=== PATIENT | female | born 1970 | race Caucasian/White ===

== ENCOUNTER 2020-07-13 21:12 | Inpatient (IN) ==
[2020-07-13] MEDS ORDERED: IOPAMIDOL 100 ML BOTTLE IV ONE (21:13)
--- NOTE | 2020-07-13 22:12 | Emergency Department Note ---
Nausea/Vomiting/Diarrhea HPI General Chief complaint: Nausea/Vomiting/Diarrhea Stated complaint: nausea, vomiting, diarrhea Time Seen by Provider: 07/13/20 22:00 Source: patient Mode of arrival: ambulatory Limitations: no limitations History of Present Illness HPI Narrative: Narrative: Evaluation of nausea vomiting and diarrhea. The patient has previously had mesenteric mass lesions as well as liver lesions noted on CT scan. Today at approximately 1400 a percutaneous liver biopsy was performed. Approximately 3 and half hours later the patient developed nausea vomiting with diarrhea dark red blood in her stool. She denies any fevers or chills. She does report some mild to moderate abdominal discomfort in the right upper quadrant. The symptoms radiate into the back. No lightheadedness or dizziness. Symptoms are constant. She denies any exacerbating or alleviating factors. Related Data Previous Rx's Medication Instructions Recorded ondansetron 4 mg PO Q6H PRN #14 tab 01/17/20 Allergies Allergy/AdvReac Type Severity Reaction Status Date / Time ciprofloxacin Allergy Mild Hives Verified 07/13/20 12:57 metronidazole [From Flagyl] Allergy Mild Hives Verified 07/13/20 12:58 Review of Systems ROS ROS Narrative: Narrative: All systems ED: reviewed and negative except as stated. PFSH Narrative Patient History Narrative: Narrative: Medical/Surgical/Family History All Active Problems (Updated 07/14/20 @ 03:09 by Stanford Garcia MD) Abdominal pain (Acute) Acute pancreatitis (Acute) Rectal bleeding (Acute) Cystic disease of liver (Acute) Left sided abdominal pain (Acute) Colonic mass (Acute) Hypoechoic nodule (Acute) Social History Smoking Status: Current every day smoker Exam Narrative Narrative: Narrative: General Limitations: no limitations General appearance: Present alert and in no apparent distress Head Head: Present atraumatic, normocephalic and normal inspection Eye Eye: Present normal appearance and EOMI; Absent conjunctival injection ENT ENT: Present normal exam and mucous membranes moist Neck Neck: Present normal inspection and trachea midline Respiratory Respiratory: Present normal lung sounds bilaterally; Absent respiratory distress Cardiovascular Cardiovascular: Present regular rate, normal rhythm and normal heart sounds Adbominal Abdominal: Present soft and other (No active bleeding.); Absent distention, tenderness, guarding and rebound Extremities Extremities: Present normal inspection; Absent tenderness Back Back: Present normal inspection; Absent tenderness Neurological Neurological: Present alert, oriented X3 and CN II-XII intact; Absent motor sensory deficit Psychiatric Psychiatric: Present normal affect and normal mood Skin Skin: Present warm (WNL) and dry; Absent rash Course Vital Signs Vital signs: Vital Signs Temperature 97.4 F 07/13/20 21:13 Pulse Rate 97 H 07/13/20 21:13 Respiratory Rate 18 07/13/20 21:13 Blood Pressure 134/82 07/13/20 21:13 Pulse Oximetry (%) 96 07/13/20 21:13 Temperature 97.4 F 07/13/20 21:13 Pulse Rate 83 07/13/20 23:30 Respiratory Rate 18 07/13/20 21:13 Blood Pressure 119/58 07/13/20 23:30 Pulse Oximetry (%) 95 07/13/20 23:30 MDM MDM Narrative Medical decision making narrative: Narrative: Patient presents for evaluation of epigastric pain to the back into the right upper quadrant in the context of recent percutaneous liver biopsy. The patient also has nausea and vomiting. Labs show a leukocytosis of 14.2. Lipase is elevated at greater than 3000. The patient CT scan shows multiple lesions as described in the report. Pancreas is described as unremarkable. There is noted to be sludge and possible stones in the gallbladder lumen. I have reviewed the patient's medical record and the patient did have an ultrasound of the gallbladder in December which was normal and showed no evidence of stones or sludge at that time. Patient was treated symptomatically with IV fluid as well as morphine and Zofran. On repeat exam she is feeling better. I reviewed the report from the liver biopsy. It does not appear that the procedure itself directly impacted the pancreas. I did discuss the case with the general surgeon on-call. He is willing to consult and does not believe the patient requires transfer for GI services at this time. The patient continues to have a small amounts of dark red blood per rectum. It is not clear at this time as to the source of this bleeding. The patient has had a colonoscopy in December which shows no evidence of diverticulosis. The patient does have a mesenteric mass which appears to be contiguous with the jejunum. This may be the source of the patient's bleeding however it does not appear that this mass was engaged during the biopsy procedure earlier today. I had a long discussion with the patient regarding the findings and the source of her symptoms. She is agreeable to be admitted to the hospital. At the time of admission her symptoms are well controlled. Lab Data Lab results reviewed: Yes I reviewed the patient's lab results. Result diagrams: 07/13/20 22:30 07/13/20 22:30 Labs: Lab Results 07/13/20 07/13/20 07/13/20 Range/Units 22:30 22:30 22:30 WBC 14.2 H (4.5-11.0) K/mcL RBC 4.61 (4.00-5.20) M/mcL Hgb 13.9 (12.0-15.0) g/dL Hct 40.9 (36.0-48.0) % MCV 88.7 (80.0-100.0) fL MCH 30.2 (26.0-34.0) pg MCHC 34.0 (31.0-36.0) g/dL RDW 13.7 (11.5-14.5) % Plt Count 237 (140-440) K/mcL MPV 11.8 H (7.4-10.4) fL Neut % (Auto) 82.8 H (38.0-78.0) % Lymph % (Auto) 12.1 L (15.0-49.0) % Norton % (Auto) 4.8 (1.0-12.0) % Eos % (Auto) 0.1 (0.0-7.0) % Baso % (Auto) 0.2 (0.0-2.0) % Lymph # (Auto) 1.72 (1.50-4.80) K/mcL Norton # (Auto) 0.68 (0.10-0.90) K/mcL Eos # (Auto) 0.02 (0.00-0.70) K/mcL Baso # (Auto) 0.03 (0.00-0.20) K/mcL Absolute Neutrophils 11.76 H (1.80-8.00) K/mcL PT 13.0 (11.9-14.5) sec INR 0.9 (0.9-1.1) Sodium 136 (133-145) mmol/L Potassium 4.0 (3.3-5.1) mmol/L Chloride 100 (96-108) mmol/L Carbon Dioxide 25 (22-30) mmol/L Anion Gap 11.0 (8.0-16.0) BUN 14 (6-20) mg/dL Creatinine 0.6 (0.6-1.1) mg/dL GFR Calculation 107 Glucose 101 (70-105) mg/dL Calcium 9.6 (8.6-10.4) mg/dL Total Bilirubin 2.1 H (0.1-1.0) mg/dL AST 210 H (<32) U/L ALT 152 H (<40) U/L Alkaline Phosphatase 99 (39-117) U/L Total Protein 7.1 (5.9-8.4) gm/dL Albumin 4.3 (3.2-5.2) gm/dL Globulin 2.8 (2.2-3.7) gm/dL Albumin/Globulin Ratio 1.5 (1.0-2.3) Lipase > 3000 H (7-60) U/L Radiology Data Radiology results reviewed: Yes I reviewed the patient's radiology results. Discharge Plan Patient/Caregiver Discharge Instructions Pt seen by [employer]/PA only: No Clinical Impression: Abdominal pain, Acute pancreatitis, Rectal bleeding Patient Disposition: Xfer As Inpt ([facility]) Follow up with: Tamie Kong [Primary Care Provider] - Prescriptions: No Action ondansetron 4 mg tablet,disintegrating 4 mg PO Q6H PRN (Reason: nausea and vomiting) Qty: 14 RF: 0
[2020-07-13 23:13] LABS: Basophils # (Auto) 0.03 K/mcL (0.00-0.20); Basophils % (Auto) 0.2 % (0.0-2.0); Eosinophils # (Auto) 0.02 K/mcL (0.00-0.70); Eosinophils % (Auto) 0.1 % (0.0-7.0); Hematocrit 40.9 % (36.0-48.0); Hemoglobin 13.9 g/dL (12.0-15.0); Lymphocytes # (Auto) 1.72 K/mcL (1.50-4.80); Lymphocytes % (Auto) 12.1 % (15.0-49.0); Mean Cell Volume 88.7 fL (80.0-100.0); Mean Platelet Volume 11.8 fL (7.4-10.4); Monocytes # (Auto) 0.68 K/mcL (0.10-0.90); Monocytes % (Auto) 4.8 % (1.0-12.0); Neutrophils % (Auto) 82.8 % (38.0-78.0); Platelet Count 237 K/mcL (140-440); RBC 4.61 M/mcL (4.00-5.20); Red Cell Distribution Width 13.7 % (11.5-14.5); WBC 14.2 K/mcL (4.5-11.0)
[2020-07-13 23:32] LABS: ALT/SGPT 152 U/L (<40); AST/SGOT 210 U/L (<32); Albumin 4.3 gm/dL (3.2-5.2); Albumin/Globulin Ratio 1.5 (1.0-2.3); Alkaline Phosphatase 99 U/L (39-117); Bilirubin,Total 2.1 mg/dL (0.1-1.0); Blood Urea Nitrogen 14 mg/dL (6-20); Calcium 9.6 mg/dL (8.6-10.4); Carbon Dioxide 25 mmol/L (22-30); Chloride 100 mmol/L (96-108); Globulin 2.8 gm/dL (2.2-3.7); Glomerular Filtration Rate 107; Glucose 101 mg/dL (70-105)
[2020-07-13 23:56] LABS: INR 0.9 (0.9-1.1)
[2020-07-14] MEDS ORDERED: HYDROmorphone 0.5 MG/0.5 ML SYRINGE IV PRN ×2 (02:43→11:49)
[2020-07-14] MEDS ORDERED: ONDANSETRON 4 MG/2 ML VIAL IV PRN ×3 (02:43→11:49)
[2020-07-14] MEDS: 0.9 % SODIUM CHLORIDE 1,000 ML IV SCH ×6 (03:23→22:58)
[2020-07-14] MEDS: 0.9 % SODIUM CHLORIDE 10 ML SYRINGE IV SCH ×4 (03:23→20:29)
--- NOTE | 2020-07-14 08:24 | Cat Scan Report ---
History: Rectal bleeding, vomiting, liver biopsy performed earlier on the same date TECHNIQUE: The patient was imaged following intravenous but no oral contrast scanning during the portal venous phase from the diaphragm through the symphysis pubis. Sagittal and coronal reformats are created. The radiation exposure was limited using dose reduction technology. FINDINGS: The lung bases are clear. There are at least seven low attenuation masses scattered throughout the liver. The largest is in segment 4A and measures approximately 4.2 cm in size. The lesion which was biopsied is located anteriorly in segment eight of the right lobe and measures 2.1 x 2.2 cm. There is no evidence of intraparenchymal or subcapsular hematoma in the liver following the preceding biopsy. No hemorrhage is seen within the abdomen or pelvis. There is some relatively high attenuation material within the lumen of the gallbladder. This is probably sludge. However, blood passing through the bile ducts into the gallbladder is a consideration. The lateral jain not thickened or inflamed. Ducts are nondilated. The spleen, pancreas and adrenals are normal. The kidneys are normal in size shape and contour and there is no kidney stone or hydronephrosis. There is a large irregularly shaped mass arising from jejunum in the left upper quadrant. It measures 4.6 x 5.6 cm. It is distorting but not occluding the lumen. The duodenum and proximal jejunum are not obstructed. Large intestine is normal without evidence of obstruction, inflammation or Mass. There are few diverticula in the sigmoid colon. Urinary bladder uterus and ovaries appear normal. Comparison the prior CT done on 06/24/20 shows the tumor in the has not enlarged. The liver metastasis have increased in size. IMPRESSION: No evidence of intra-abdominal hemorrhage following the preceding liver biopsy Multiple liver metastasis Stable tumor in the jejunum in the left upper quadrant, not causing bowel obstruction Interpreted and Authenticated by: Per Graf 07/14/20
[2020-07-14] MEDS ORDERED: DOCUSATE SODIUM 100 MG CAPSULE PO SCH ×2 (09:00→21:00)
[2020-07-14] MEDS ORDERED: NICOTINE 21 MG PATCH TOPICAL SCH (10:00)
--- NOTE | 2020-07-14 11:17 | Internal Med History&Physical ---
HPI History of Present Illness Patient information: Note initiated : 07/14/20 at 11:05 am Service Date, if different from initiated Date: [] Patient: Jewell Bartlett a 49 y/o F admitted on 07/14/20 for nausea, vomiting, diarrhea. Chief Complaint: [] History of present illness: Ms. Bartlett is a 49 year old F recently diagnosed mesenteric tumor, presenting with bloody stool and abdominal pain. 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 Yesterday afternoon she received a liver biopsy. About 3 and half hours after the procedures, she developed multiple episodes of lower GI bleeding with bloody stool hospitalized increasing abdominal pain mostly in the right upper quadrant severe and sharp in nature. She also has nausea and vomiting associated. Due to the symptoms, she was brought to the ED for further evaluation. Lipase found to be elevated to more than 3 ounces. Constitutional Constitutional: Absent chills, excessive sweating, fatigue, fever(s) and weakness EENT Eyes: Absent blurry vision, change in vision, loss of vision and other visual disturbances Ears: Absent decreased hearing and tinnitus Nose, mouth and throat: Absent abnormal hearing, dry mouth, headache(s), nasal congestion and sore throat Cardiovascular Cardiovascular: Absent chest pain, chest pain at rest, edema, irregular heart rhythm and palpatations Respiratory Respiratory: Absent cough, dyspnea and wheezing Gastrointestinal Gastrointestinal: Present abdominal pain, hematochezia, nausea and vomiting; Absent constipation and diarrhea Musculoskeletal Musculoskeletal: Absent back pain, deformity, limited range of motion, muscle cramps, muscle weakness and numbness Integumentary Integumentary: Absent lesions, rash and wounds Neurological Neurological: Absent focal weakness, headache(s) and numbness Psychiatric Psychiatric: Absent anxiety, depression and hallucinations PFSH PFSH All Active Problems (Updated 07/14/20 @ 11:14 by Nathanael Turner MD) Current tobacco use (Acute) Mesenteric mass (Acute) Liver metastases (Acute) Lower GI bleed (Acute) Abdominal pain (Acute) Acute pancreatitis (Acute) Rectal bleeding (Acute) Cystic disease of liver (Acute) Left sided abdominal pain (Acute) Colonic mass (Acute) Hypoechoic nodule (Acute) MEDS/ALLERGIES Home Medications and Allergies Home Medications Medication Instructions Recorded Confirmed Type Adult Multivitamin Gummies 1 cap PO DAILY 07/14/20 07/14/20 History acetaminophen 1,000 mg PO Q8HP PRN 07/14/20 07/14/20 History Allergies Allergy/AdvReac Type Severity Reaction Status Date / Time ciprofloxacin Allergy Mild Hives Verified 07/13/20 12:57 metronidazole [From Flagyl] Allergy Mild Hives Verified 07/13/20 12:58 EXAM Constitutional Vitals: Temp Pulse Resp BP Pulse Ox 37.2 C 80 15 107/74 95 07/14/20 07:41 07/14/20 07:41 07/14/20 07:41 07/14/20 07:41 07/14/20 07:41 Exam: Deferred since patient refused to be examined DATA Data Completed and Pending Labs: Labs from last 24 hours 07/13/20 07/13/20 07/13/20 22:30 22:30 22:30 WBC 14.2 H RBC 4.61 Hgb 13.9 Hct 40.9 MCV 88.7 MCH 30.2 MCHC 34.0 RDW 13.7 Plt Count 237 MPV 11.8 H Neut % (Auto) 82.8 H Lymph % (Auto) 12.1 L Isabella % (Auto) 4.8 Eos % (Auto) 0.1 Baso % (Auto) 0.2 Lymph # (Auto) 1.72 Isabella # (Auto) 0.68 Eos # (Auto) 0.02 Baso # (Auto) 0.03 Absolute Neutrophils 11.76 H PT 13.0 INR 0.9 Sodium 136 Potassium 4.0 Chloride 100 Carbon Dioxide 25 Anion Gap 11.0 BUN 14 Creatinine 0.6 GFR Calculation 107 Glucose 101 Calcium 9.6 Total Bilirubin 2.1 H AST 210 H ALT 152 H Alkaline Phosphatase 99 Total Protein 7.1 Albumin 4.3 Globulin 2.8 Albumin/Globulin Ratio 1.5 Lipase > 3000 H A/P Assessment and plan (1) Acute pancreatitis: Status: Acute (2) Lower GI bleed: Status: Acute (3) Liver metastases: Status: Acute (4) Mesenteric mass: Status: Acute (5) Current tobacco use: Status: Acute Narrative A/P Narrative: 1. Acute pancreatitis: Most likely triggered by recent liver biopsy procedure Admit to inpatient med surg NPO, okay for ice chips [id number] Zofran IV PRN nausea vomiting Dilaudid IV PRN severe pain 2. Lower GI bleeding, mesenteric mass with multiple liver metastases: Consult Dr. Aguirre, recs. appreciated Protonix 40mg IV BID SCDs only for DVT ppx Keep patient NPO in case if additional surgical procedures are indicated 3. Current tobacco use: Nicotine replacement therapy Time Spent With Patient Time: Total time spent is greater than 50% in coordination of care (as documented) at patient's floor/unit and/or counseling patient: Total time spent with greater than 50% in coordination of care (as documented) at patient's floor/unit and/or counseling patient:: 15 - 24 minutes QUALITY VTE Deep Vein Thrombosis/Pulmonary Embolism Present on Admission: No
[2020-07-14] MEDS ORDERED: traZODone HCL 50 MG TABLET PO PRN (11:49)
[2020-07-14] MEDS ORDERED: IOPAMIDOL 100 ML BOTTLE IV ONE (11:49)
--- NOTE | 2020-07-14 12:03 | Ultrasound Report ---
History: Pancreatitis, liver mass, small bowel mass, status post liver biopsy yesterday FINDINGS: There are multiple hypoechoic lesions in the liver. The largest is located superiorly in the left lobe and measures 4.2 x 4.3 x 4.4 cm. As a thick echogenic rind and a cystic central component. Second largest is located in the right lobe and measures 2.2 x 2.9 x 3.6 cm. Laterally in the right lobe there is another partially cystic and partial solid lesion which measures 2.1 x 2.2 x 2.4 cm. These were seen on the preceding CT scan and have remained stable. The overall size liver is normal. There is no dilatation of the intrahepatic bile ducts. The pancreas is normal without evidence of a mass or inflammation. Pancreatic duct is 2 mm in diameter. Within the lumen of the gallbladder there is a linear echogenic bands of tissue along with some sludge. The gallbladder wall is 2 mm in thickness. No pericholecystic fluid collection is present. Common bile duct ranges from 4 to 5 mm in diameter. There is no ascites or hematoma are present. IMPRESSION: Normal pancreas Scattered lesions in the liver which are more likely necrotic metastasis rather than multifocal abscess Echogenic material within the gallbladder. This could be retracted clot secondary to yesterday's liver biopsy or debris from chronic cholecystitis. No ascites or evidence of upper abdominal hematoma Interpreted and Authenticated by: Per Graf 07/14/20
--- NOTE | 2020-07-14 13:37 | General Surgery Consult Note ---
HPI Data of Consult Patient: new to practice Consult date: 07/14/20 Requesting physician: Nathanael Turner Primary Care Provider: Tamie Kong Consult Narrative Chief complaint: Abdominal pain, nausea emesis and blood per rectum Reason for consult: Abdominal pain History of present illness: This is a pleasant 49-year-old female who has a complex recent medical history. She was having some abdominal pain last December, was seen in CT scan showed a questionable transverse colon colon mass along with multiple liver lesions. She was referred for an outpatient GI evaluation and underwent a screening colonoscopy by Dr. Camara which was negative. She was referred to Dr. Manning concern clinic, ordered a CEA and a CT scan. Patient was lost to follow-up after the CT scan until recently where she underwent a repeat CT scan which showed the liver lesions as increasing and the transverse colon mass was more likely a intra-abdominal mass versus a small bowel mass. She was referred to interventional radiology yesterday for a CT-guided biopsy of the liver lesion, she reports after that biopsy she became nauseous had multiple bouts of emesis with bright red which she describes as blood followed by multiple bouts of diarrhea also with blood. She came into the emergency room where work-up was significant for CT scan which demonstrates a liver lesions, what is read as a intra-abdominal mass, and labs significant with an elevated white blood cell count along with elevated lipase. She was admitted for pancreatitis and I was asked to evaluate her this morning for possible gallstone pancreatitis. cc:: CC: Nathanael Turner MD Review of Systems Review of systems: All systems are reviewed, negative other than above PFSH PFSH All Active Problems (Updated 07/14/20 @ 13:42 by Alok Aguirre MD) Current tobacco use (Acute) Mesenteric mass (Acute) Liver metastases (Acute) Lower GI bleed (Acute) Abdominal pain (Acute) Acute pancreatitis (Acute) Rectal bleeding (Acute) Cystic disease of liver (Acute) Left sided abdominal pain (Acute) Colonic mass (Acute) Hypoechoic nodule (Acute) MEDS/ALLERGIES Home Medications and Allergies Home Medications Medication Instructions Recorded Confirmed Type Adult Multivitamin Gummies 1 cap PO DAILY 07/14/20 07/14/20 History acetaminophen 1,000 mg PO Q8HP PRN 07/14/20 07/14/20 History Allergies Allergy/AdvReac Type Severity Reaction Status Date / Time ciprofloxacin Allergy Mild Hives Verified 07/13/20 12:57 metronidazole [From Flagyl] Allergy Mild Hives Verified 07/13/20 12:58 Physical Examination Vital Signs Vital signs: Temp Pulse Resp BP Pulse Ox 97 F 71 15 115/69 97 07/14/20 12:00 07/14/20 12:00 07/14/20 12:00 07/14/20 12:00 07/14/20 12:00 General physical appearance General physical exam: well developed, well nourished and no distress Eyes Eye exam: PERRL and normal ocular movement ENT ENT exam: normal pinna, normal nares, normal mucosa, no hearing loss and no congestion Head Head exam IM: Present atraumatic and normocephalic Neck Neck exam: no masses, no bruits, trachea midline, no lymphadenopathy and no blake ous distension Cardiovascular Cardiovascular exam IM: Present normal rate and rhythm Respiratory Respiratory exam: normal expansion, normal respiratory effort, clear to percussion and clear to auscultation Abdomen Abdomen: Present soft, non tender and bowel sounds Hernia: Present none Genitourinary Genitourinary (Female): Present normal external genitalia Rectum Rectum: Present normal sphincter tone, no hemorrhoids, no tenderness, no masses and no bleeding Integumentary Integumentary: Present no rash, no growths and no abnormal pigmentation Neurologic Neurologic: Present normal coordination and normal sensation Musculoskeletal Musculoskeletal: Present normal gait and normal posture Psychiatric Psychiatric: Present oriented to time, oriented to person, oriented to place, speech is normal and memory intact Results Labs Result diagrams: 07/13/20 22:30 07/13/20 22:30 Labs: Abnormal lab results 07/13/20 07/13/20 Range/Units 22:30 22:30 WBC 14.2 H (4.5-11.0) K/mcL MPV 11.8 H (7.4-10.4) fL Neut % (Auto) 82.8 H (38.0-78.0) % Lymph % (Auto) 12.1 L (15.0-49.0) % Absolute Neutrophils 11.76 H (1.80-8.00) K/mcL Total Bilirubin 2.1 H (0.1-1.0) mg/dL AST 210 H (<32) U/L ALT 152 H (<40) U/L Lipase > 3000 H (7-60) U/L Diabetes panel 04/21/21 Range/Units 22:30 Sodium 136 (133-145) mmol/L Potassium 4.0 (3.3-5.1) mmol/L Chloride 100 (96-108) mmol/L Carbon Dioxide 25 (22-30) mmol/L BUN 14 (6-20) mg/dL Creatinine 0.6 (0.6-1.1) mg/dL Glucose 101 (70-105) mg/dL Calcium 9.6 (8.6-10.4) mg/dL AST 210 H (<32) U/L ALT 152 H (<40) U/L Alkaline Phosphatase 99 (39-117) U/L Total Protein 7.1 (5.9-8.4) gm/dL Albumin 4.3 (3.2-5.2) gm/dL Calcium panel 07/13/20 Range/Units 22:30 Calcium 9.6 (8.6-10.4) mg/dL Albumin 4.3 (3.2-5.2) gm/dL Pituitary panel 07/13/20 Range/Units 22:30 Sodium 136 (133-145) mmol/L Potassium 4.0 (3.3-5.1) mmol/L Chloride 100 (96-108) mmol/L Carbon Dioxide 25 (22-30) mmol/L BUN 14 (6-20) mg/dL Creatinine 0.6 (0.6-1.1) mg/dL Glucose 101 (70-105) mg/dL Calcium 9.6 (8.6-10.4) mg/dL Adrenal panel 07/13/20 Range/Units 22:30 Sodium 136 (133-145) mmol/L Potassium 4.0 (3.3-5.1) mmol/L Chloride 100 (96-108) mmol/L Carbon Dioxide 25 (22-30) mmol/L BUN 14 (6-20) mg/dL Creatinine 0.6 (0.6-1.1) mg/dL Glucose 101 (70-105) mg/dL Calcium 9.6 (8.6-10.4) mg/dL Total Bilirubin 2.1 H (0.1-1.0) mg/dL AST 210 H (<32) U/L ALT 152 H (<40) U/L Alkaline Phosphatase 99 (39-117) U/L Total Protein 7.1 (5.9-8.4) gm/dL Albumin 4.3 (3.2-5.2) gm/dL All other labs normal. A/P Assessment and plan (1) Mesenteric mass: Status: Acute Comment: I feel like this is her primary concern at this time. She underwent a biopsy of the liver lesion yesterday. Right upper quadrant ultrasound shows sludge in gallbladder, however without obvious stones therefore is much less likely to be the cause of her pancreatitis. Recommend continue n.p.o. at this time until pancreatitis resolves. We will have a discussion with her about timing of treatment, however I feel she would benefit from exploratory laparotomy and resection of the mesenteric mass. Thank you very much for this consultation. Please call with any further questions. (2) Liver metastases: Status: Acute Comment: Status post biopsy yesterday Time Spent With Patient Time: Total time spent is greater than 50% in coordination of care (as documented) at patient's floor/unit and/or counseling patient:
[2020-07-14] MEDS ORDERED: 0.9 % SODIUM CHLORIDE 10 ML SYRINGE IV SCH (14:00)
[2020-07-14] MEDS: PANTOPRAZOLE 40 MG VIAL IV SCH (17:00)
[2020-07-14] MEDS ORDERED: PANTOPRAZOLE 40 MG VIAL IV SCH (17:00)
[2020-07-14] MEDS: SENNOSIDES 1 TABLET PO SCH (20:29)
[2020-07-14] MEDS: DOCUSATE SODIUM 100 MG CAPSULE PO SCH (20:29)
[2020-07-14] MEDS ORDERED: SENNOSIDES 1 TABLET PO SCH ×2 (21:00)
[2020-07-15] MEDS: 0.9 % SODIUM CHLORIDE 1,000 ML IV SCH ×3 (02:58→11:19)
[2020-07-15] MEDS: 0.9 % SODIUM CHLORIDE 10 ML SYRINGE IV SCH ×3 (04:12→20:38)
[2020-07-15 07:04] LABS: Basophils # (Auto) 0.04 K/mcL (0.00-0.20); Basophils % (Auto) 0.4 % (0.0-2.0); Eosinophils # (Auto) 0.06 K/mcL (0.00-0.70); Eosinophils % (Auto) 0.7 % (0.0-7.0); Hematocrit 36.8 % (36.0-48.0); Hemoglobin 12.1 g/dL (12.0-15.0); Lymphocytes # (Auto) 1.04 K/mcL (1.50-4.80); Lymphocytes % (Auto) 11.6 % (15.0-49.0); Mean Cell Volume 92.7 fL (80.0-100.0); Mean Corpuscular HGB Conc 32.9 g/dL (31.0-36.0); Mean Platelet Volume 12.1 fL (7.4-10.4); Monocytes # (Auto) 0.53 K/mcL (0.10-0.90); Monocytes % (Auto) 5.9 % (1.0-12.0); Neutrophils % (Auto) 81.4 % (38.0-78.0); Platelet Count 186 K/mcL (140-440); RBC 3.97 M/mcL (4.00-5.20)
[2020-07-15] MEDS: PANTOPRAZOLE 40 MG VIAL IV SCH ×2 (07:23→17:42)
[2020-07-15 07:40] LABS: ALT/SGPT 84 U/L (<40); AST/SGOT 59 U/L (<32); Albumin 3.3 gm/dL (3.2-5.2); Albumin/Globulin Ratio 1.4 (1.0-2.3); Alkaline Phosphatase 69 U/L (39-117); Bilirubin,Total 0.8 mg/dL (0.1-1.0); Blood Urea Nitrogen 11 mg/dL (6-20); Calcium 7.7 mg/dL (8.6-10.4); Carbon Dioxide 17 mmol/L (22-30); Chloride 111 mmol/L (96-108); Globulin 2.3 gm/dL (2.2-3.7); Glomerular Filtration Rate 107; Glucose 48 mg/dL (70-105)
[2020-07-15] MEDS: DOCUSATE SODIUM 100 MG CAPSULE PO SCH ×2 (09:52→20:37)
[2020-07-15] MEDS: NICOTINE 21 MG PATCH TOPICAL SCH (09:53)
--- NOTE | 2020-07-15 11:14 | General Surgery Progress Note ---
SUBJECTIVE Subjective Patient information: Note initiated : 07/15/20 at 11:11 am Service Date, if different from initiated Date: [] Patient: Jewell Bartlett 50 y/o F admitted on 07/14/20 for nausea, vomiting, diarrhea. Chief Complaint: [] Interval history: Hospital day #2 status post radiology biopsy of the liver lesion, pancreatitis and nausea and vomiting. Patient feels slightly better today although her abdominal mass feels full. Lipase is returned to normal today. Discussed with her hepatobiliary surgeon last night her plan of treatment which is biopsy results, Gleevac to shrink liver and primary tumor followed by surgical resection. I discussed this with at length with the patient today. Constitutional Vitals: Vital Signs Temp Pulse Resp BP Pulse Ox 97.9 F 88 16 100/59 97 07/15/20 07:00 07/15/20 07:00 07/15/20 07:00 07/15/20 07:00 07/15/20 07:00 Period Temp Pulse Resp BP Sys/Baird Pulse Ox Last 24 Hr 97 F-98.9 F 71-98 15-16 100-119/59-77 95-97 Intake and Output 07/14/20 07/15/20 07/15/20 21:59 05:59 13:59 Intake Total 2123 1967 1000 Output Total 700 1050 525 Balance 1424 918 475 Weight 118 lb 14.4 oz Intake & Output: Intake & Output 07/14/20 07/15/20 07/15/20 21:59 05:59 13:59 Intake Total 2123 1967 1000 Output Total 700 1050 525 Balance 1424 918 475 Weight 118 lb 14.4 oz Intake: IV 2003 1907 999 Sodium Chloride 0.9% 1,000 ml @ 2003 1907 1000 250 mls/hr IV .Q4H [facility] Rx#: [id number] Oral 120 60 Output: Void Amount 700 700 525 Urine/Stool Mix 350 Other: Urine Appearance Clear Clear Clear Urine Color Bright Yellow Pale Bright Yellow Urine Odor Normal Normal Stool Size Small Stool Color Blood Tinged General appearance: cooperative and no acute distress Respiratory Respiratory exam: Present normal respiratory exam GI/Abdominal GI/Abdominal exam: Present normal bowel sounds and soft; Absent distended and tenderness A/P Narrative A/P Narrative: Liver metastasis with 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 Awaiting biopsy results. Pancreatitis, lipase returned to normal today. Will start clear liquid diet, advance as tolerated. If H&H stays stable and she is able to tolerate a regular diet would likely be able to be discharged tomorrow. Time Spent With Patient Time: Total time spent is greater than 50% in coordination of care (as documented) at patient's floor/unit and/or counseling patient:
--- NOTE | 2020-07-15 14:59 | Internal Med Progress Note ---
SUBJECTIVE Subjective Patient information: Note initiated : 07/15/20 at 2:55 pm Service Date, if different from initiated Date: [] Patient: Jewell Bartlett 50 y/o F admitted on 07/14/20 for nausea, vomiting, diarrhea. Chief Complaint: [nausea vomiting and abdominal pain] Overnight: bowel movement with blood tinge earlier today. Tolerating clear liquid diet. Lipase level normalized. Subjective: Moderate discomfort of the LUQ and LLQ abdomen. Denies nausea or vomiting. Tolerating clear liquid diet. Constitutional Vitals: Vital Signs Temp Pulse Resp BP Pulse Ox 36.6 C 84 16 102/64 96 07/15/20 11:57 07/15/20 11:57 07/15/20 11:57 07/15/20 11:57 07/15/20 11:57 Period Temp Pulse Resp BP Sys/Baird Pulse Ox Last 24 Hr 36.6 C-37.2 C 80-98 15-16 100-119/59-77 95-97 Intake and Output 07/15/20 07/15/20 07/15/20 05:59 13:59 21:59 Intake Total 1967 1995 480 Output Total 1050 750 300 Balance 918 1246 180 Intake & Output: Intake & Output 07/15/20 07/15/20 07/15/20 05:59 13:59 21:59 Intake Total 1967 Output Total 1050 750 300 Balance 918 1246 180 Intake: IV 1907 1995 Sodium Chloride 0.9% 1,000 ml @ 1908 1995 250 mls/hr IV .Q4H [facility] Rx#: [id number] Oral 60 480 Output: Urine Catheter Amount 75 Void Amount 700 675 300 Urine/Stool Mix 350 Other: Meal Lunch Percent of Meal Consumed 100% Feeding Ability Independent Urine Appearance Clear Clear Clear Urine Color Pale Bright Yellow Bright Yellow Urine Odor Normal Stool Size Small Small Stool Color Blood Tinged Blood Tinged General appearance: cooperative and no acute distress Head Head exam: Present atraumatic and normocephalic Eye Eye exam: Present EOMI and PERRL ENT ENT exam: Present mucous membranes moist, normal exam and normal external ear exam Neck Neck exam: Present normal inspection; Absent lymphadenopathy, tenderness and thyromegaly Respiratory Respiratory exam: Absent accessory muscle use, respiratory distress and wheezes Cardiovascular Cardiovascular exam: Present normal rate and rhythm; Absent JVD GI/Abdominal GI/Abdominal exam: Present normal bowel sounds, soft and tenderness; Absent organomegaly Extremities Exam Extremities exam: Present full ROM, normal capillary refill and normal inspection; Absent tenderness Neurological Exam Neurological exam: Present alert, CN II-XII intact and oriented X3; Absent motor sensory deficit Psychiatric Psychiatric exam: Present normal affect and normal mood; Absent anxious and depressed Skin Skin exam: Present dry and intact OBJ DATA Labs CBC & Chem 7: 07/15/20 05:34 07/15/20 05:34 Labs: Abnormal Lab Results 07/15/20 07/15/20 07/13/20 05:34 05:34 22:30 WBC RBC 3.97 L MPV 12.1 H Neut % (Auto) 81.4 H Lymph % (Auto) 11.6 L Lymph # (Auto) 1.04 L Absolute Neutrophils Chloride 111 H Carbon Dioxide 17 L Glucose 48 L Calcium 7.7 L Total Bilirubin 2.1 H AST 59 H 210 H ALT 84 H 152 H Total Protein 5.6 L Lipase > 3000 H 07/13/20 22:30 WBC 14.2 H RBC MPV 11.8 H Neut % (Auto) 82.8 H Lymph % (Auto) 12.1 L Lymph # (Auto) Absolute Neutrophils 11.76 H Chloride Carbon Dioxide Glucose Calcium Total Bilirubin AST ALT Total Protein Lipase Meds: Medications Docusate Sodium (Docusate Sodium 100 Mg Capsule) 100 mg PO BID [facility] Last Admin: 07/15/20 09:52 Dose: 100 mg Documented by: Hydromorphone HCl (Hydromorphone 0.5 Mg/0.5 Ml Syringe) 0.5 mg IV Q2HP PRN; Protocol PRN Reason: Per Pain Protocol Nicotine (Nicotine 21 Mg Patch) 21 mg TOPICAL DAILY@1000 [facility] Last Admin: 07/15/20 09:53 Dose: 21 mg Documented by: Ondansetron HCl (Ondansetron 4 Mg/2 Ml Vial) 4 mg IV Q6HP PRN PRN Reason: Nausea And Vomiting Pantoprazole Sodium (Pantoprazole 40 Mg Vial) 40 mg IV BIDAC [facility] Last Admin: 07/15/20 07:23 Dose: 40 mg Documented by: Senna (Sennosides 1 Tablet) 2 tab PO HS [facility] Last Admin: 07/14/20 20:29 Dose: Not Given Documented by: Sodium Chloride (0.9 % Sodium Chloride 10 Ml Syringe) 10 ml IV Q8 [facility] Last Admin: 07/15/20 04:12 Dose: Not Given Documented by: Trazodone HCl (Trazodone Hcl 50 Mg Tablet) 50 mg PO HSP PRN PRN Reason: Insomnia A/P Assessment and plan (1) Acute pancreatitis: Status: Acute (2) Lower GI bleed: Status: Acute (3) Liver metastases: Status: Acute Comment: Status post biopsy yesterday (4) Mesenteric mass: Status: Acute Comment: I feel like this is her primary concern at this time. She underwent a biopsy of the liver lesion yesterday. Right upper quadrant ultrasound shows sludge in gallbladder, however without obvious stones therefore is much less likely to be the cause of her pancreatitis. Recommend continue n.p.o. at this time until pancreatitis resolves. We will have a discussion with her about timing of treatment, however I feel she would benefit from exploratory laparotomy and resection of the mesenteric mass. Thank you very much for this consultation. Please call with any further questions. (5) Current tobacco use: Status: Acute Narrative A/P Narrative: 1. Acute pancreatitis: Most likely triggered by recent liver biopsy procedure Lipase level normalized today Clear liquid diet, advance as tolerated Saline lock Zofran IV PRN nausea vomiting Dilaudid IV PRN severe pain If H/H stable, tolerating regular diet, and pain controlled, can be discharged home tomorrow 2. Lower GI bleeding, mesenteric mass with multiple liver metastases: Consult antonino Sneed. appreciated Protonix 40mg IV BID SCDs only for DVT ppx Clear liquid diet, advance as tolerated 3. 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 Gleevac to shrink primary and liver tumors followed by surgical resection Time Spent With Patient Time: Total time spent is greater than 50% in coordination of care (as documented) at patient's floor/unit and/or counseling patient: QUALITY VTE Deep Vein Thrombosis/Pulmonary Embolism Present on Admission: No
[2020-07-15] MEDS: SENNOSIDES 1 TABLET PO SCH (20:37)
[2020-07-16] MEDS: 0.9 % SODIUM CHLORIDE 10 ML SYRINGE IV SCH ×2 (05:54→13:34)
[2020-07-16] MEDS ORDERED: oxyCODONE/APAP 10/325MG TABLET PO PRN (07:53)
[2020-07-16] MEDS: PANTOPRAZOLE 40 MG VIAL IV SCH (07:58)
--- NOTE | 2020-07-16 08:32 | Internal Med Progress Note ---
SUBJECTIVE Subjective Patient information: Note initiated : 07/16/20 at 8:29 am Service Date, if different from initiated Date: [] Patient: Jewell Bartlett 50 y/o F admitted on 07/14/20 for nausea, vomiting, diarrhea. Chief Complaint: [Pancreatitis] Overnight: One episode of hematochezia this morning. Tolerating full liquid diet. Subjective: One episode of hematochezia this morning. Tolerating full liquid diet. Mild LUQ abdominal pain. Nausea. Constitutional Vitals: Vital Signs Temp Pulse Resp BP Pulse Ox 37.2 C 72 16 124/71 97 07/16/20 08:00 07/16/20 08:00 07/16/20 08:00 07/16/20 08:00 07/16/20 08:00 Period Temp Pulse Resp BP Sys/Baird Pulse Ox Last 24 Hr 36.3 C-37.2 C 64-87 16-20 102-131/64-80 95-100 Intake and Output 07/15/20 07/16/20 07/16/20 21:59 05:59 13:59 Intake Total 1660 Output Total 1535 1250 300 Balance 125 -1250 -300 Weight 55.656 kg Intake & Output: Intake & Output 07/15/20 07/16/20 07/16/20 21:59 05:59 13:59 Intake Total 1660 Output Total 1535 1250 300 Balance 125 -1250 -300 Weight 55.656 kg Intake: IV 700 Sodium Chloride 0.9% 1,000 ml @ 700 250 mls/hr IV .Q4H [facility] Rx#: [id number] Oral 960 Output: Void Amount 1535 1000 300 Stool 250 Other: Meal Dinner Percent of Meal Consumed 75% Feeding Ability Independent Urine Appearance Clear Clear Urine Color Bright Yellow Bright Yellow Urine Odor Normal Stool Size Small Moderate Stool Color Blood Tinged Brown Black Stool Consistency Liquid Loose General appearance: cooperative and no acute distress Head Head exam: Present atraumatic and normocephalic Eye Eye exam: Present EOMI and PERRL ENT ENT exam: Present mucous membranes moist, normal exam and normal external ear exam Neck Neck exam: Present normal inspection; Absent lymphadenopathy, tenderness and thyromegaly Respiratory Respiratory exam: Absent accessory muscle use, respiratory distress and wheezes Cardiovascular Cardiovascular exam: Present normal rate and rhythm; Absent JVD GI/Abdominal GI/Abdominal exam: Present normal bowel sounds and soft; Absent organomegaly and tenderness Extremities Exam Extremities exam: Present full ROM, normal capillary refill and normal inspection; Absent tenderness Neurological Exam Neurological exam: Present alert, CN II-XII intact and oriented X3; Absent motor sensory deficit Psychiatric Psychiatric exam: Present normal affect and normal mood; Absent anxious and depressed Skin Skin exam: Present dry and intact OBJ DATA Labs CBC & Chem 7: 07/15/20 05:34 07/15/20 05:34 Labs: Abnormal Lab Results 07/15/20 07/15/20 07/13/20 05:34 05:34 22:30 WBC RBC 3.97 L MPV 12.1 H Neut % (Auto) 81.4 H Lymph % (Auto) 11.6 L Lymph # (Auto) 1.04 L Absolute Neutrophils Chloride 111 H Carbon Dioxide 17 L Glucose 48 L Calcium 7.7 L Total Bilirubin 2.1 H AST 59 H 210 H ALT 84 H 152 H Total Protein 5.6 L Lipase > 3000 H 07/13/20 22:30 WBC 14.2 H RBC MPV 11.8 H Neut % (Auto) 82.8 H Lymph % (Auto) 12.1 L Lymph # (Auto) Absolute Neutrophils 11.76 H Chloride Carbon Dioxide Glucose Calcium Total Bilirubin AST ALT Total Protein Lipase Meds: Medications Docusate Sodium (Docusate Sodium 100 Mg Capsule) 100 mg PO BID [facility] Last Admin: 07/15/20 20:37 Dose: 100 mg Documented by: Hydromorphone HCl (Hydromorphone 0.5 Mg/0.5 Ml Syringe) 0.5 mg IV Q2HP PRN; Protocol PRN Reason: Per Pain Protocol Last Admin: 07/15/20 17:49 Dose: 0.5 mg Documented by: Nicotine (Nicotine 21 Mg Patch) 21 mg TOPICAL DAILY@1000 [facility] Last Admin: 07/15/20 09:53 Dose: 21 mg Documented by: Ondansetron HCl (Ondansetron 4 Mg/2 Ml Vial) 4 mg IV Q6HP PRN PRN Reason: Nausea And Vomiting Oxycodone/Acetaminophen (Oxycodone/Apap 10/325mg Tablet) 1 tab PO Q4-6HP PRN; Protocol PRN Reason: Per Pain Protocol Pantoprazole Sodium ([facility] 40 Mg [facility]) [facility] Admin: 07/16/20 07:58 Dose: 40 mg Documented by: Senna (Sennosides 1 Tablet) 2 tab PO HS [facility] Last Admin: 07/15/20 20:37 Dose: 2 tab Documented by: Sodium Chloride (0.9 % Sodium Chloride 10 Ml Syringe) 10 ml IV Q8 [facility] Last Admin: 07/16/20 05:54 Dose: 10 ml Documented by: Trazodone HCl (Trazodone Hcl 50 Mg Tablet) 50 mg PO HSP PRN PRN Reason: Insomnia A/P Assessment and plan (1) Acute pancreatitis: Status: Acute (2) Lower GI bleed: Status: Acute (3) Liver metastases: Status: Acute Comment: Status post biopsy yesterday (4) Mesenteric mass: Status: Acute Comment: I feel like this is her primary concern at this time. She underwent a biopsy of the liver lesion yesterday. Right upper quadrant ultrasound shows sludge in gallbladder, however without obvious stones therefore is much less likely to be the cause of her pancreatitis. Recommend continue n.p.o. at this time until pancreatitis resolves. We will have a discussion with her about timing of treatment, however I feel she would benefit from exploratory laparotomy and resection of the mesenteric mass. Thank you very much for this consultation. Please call with any further questions. (5) Current tobacco use: Status: Acute Narrative A/P Narrative: 1. Acute pancreatitis: Most likely triggered by recent liver biopsy procedure Lipase level normalized today Full liquid diet, advance as tolerated Saline lock Zofran IV PRN nausea vomiting Dilaudid IV PRN severe pain Oxycodone/APAP 10-325mg PO q4-6hr PRN moderate pain If H/H stable, tolerating regular diet, and pain controlled, can be discharged home tomorrow 2. Lower GI bleeding, mesenteric mass with multiple liver metastases: Consult antonino Sneed. appreciated Protonix 40mg IV BID SCDs only for DVT ppx Full liquid diet, advance as tolerated 3. 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 Gleevac to shrink primary and liver tumors followed by surgical resection Time Spent With Patient Time: Total time spent is greater than 50% in coordination of care (as documented) at patient's floor/unit and/or counseling patient: QUALITY VTE Deep Vein Thrombosis/Pulmonary Embolism Present on Admission: No
[2020-07-16 08:59] LABS: Basophils # (Auto) 0.02 K/mcL (0.00-0.20); Basophils % (Auto) 0.2 % (0.0-2.0); Eosinophils # (Auto) 0.08 K/mcL (0.00-0.70); Eosinophils % (Auto) 0.9 % (0.0-7.0); Hematocrit 34.8 % (36.0-48.0); Hemoglobin 11.7 g/dL (12.0-15.0); Lymphocytes # (Auto) 0.99 K/mcL (1.50-4.80); Lymphocytes % (Auto) 11.4 % (15.0-49.0); Mean Cell Volume 90.4 fL (80.0-100.0); Mean Corpuscular HGB Conc 33.6 g/dL (31.0-36.0); Mean Platelet Volume 12.6 fL (7.4-10.4); Monocytes # (Auto) 0.59 K/mcL (0.10-0.90); Monocytes % (Auto) 6.8 % (1.0-12.0); Neutrophils % (Auto) 80.7 % (38.0-78.0); Platelet Count 197 K/mcL (140-440); RBC 3.85 M/mcL (4.00-5.20); WBC 8.7 K/mcL (4.5-11.0)
[2020-07-16] MEDS: DOCUSATE SODIUM 100 MG CAPSULE PO SCH (09:22)
[2020-07-16 09:30] LABS: ALT/SGPT 68 U/L (<40); AST/SGOT 41 U/L (<32); Albumin 3.4 gm/dL (3.2-5.2); Albumin/Globulin Ratio 1.4 (1.0-2.3); Alkaline Phosphatase 66 U/L (39-117); Bilirubin,Total 0.8 mg/dL (0.1-1.0); Blood Urea Nitrogen 4 mg/dL (6-20); Calcium 8.5 mg/dL (8.6-10.4); Carbon Dioxide 26 mmol/L (22-30); Chloride 111 mmol/L (96-108); Globulin 2.5 gm/dL (2.2-3.7); Glomerular Filtration Rate 114; Glucose 80 mg/dL (70-105)
--- NOTE | 2020-07-16 10:20 | Discharge Summary ---
Discharge Provider Provider Patient information: Note initiated : 07/16/20 at 10:15 am Service Date, if different from initiated Date: [] Patient: Jewell Bartlett 50 y/o F admitted on 07/14/20 for nausea, vomiting, diarrhea. Chief Complaint: [Pancreatitis. ] Date of admission: 07/14/20 03:10 Discharge date: 07/16/20 Primary care physician: Tamie Kong Consults: 07/14/20 Consult to Physician [CONS] Stat Comment: Consulting Provider: Nathanael Turner Reason For Exam: Physician to Consult 07/14/20 11:49 Consult to Physician [CONS] Stat Comment: GI bleeding Consulting Provider: Alok Aguirre Reason For Exam: Physician to Consult Discharge Meds Discharge Medications Home Medications Adult Multivitamin Gummies 1 cap PO DAILY 07/14/20 [History Confirmed 07/14/20 Last Taken 07/12/20 19:30] acetaminophen 1,000 mg PO Q8HP PRN 07/14/20 [History Confirmed 07/14/20 Last Taken 07/13/20 16:00] oxycodone-acetaminophen 1 tab PO Q4-6HP PRN #10 tab 07/16/20 [Rx Last Taken Unknown] COURSE Hospital Course Hospital course: Patient was admitted on 07/14/20 for acute pancreatitis. Initial bowel rest followed by gradual bowel advancement, IV fluid rehydration, and narcotics as needed for pain control were all provided. By 07/16/20 patient's symptoms were under controlled. She also came with hematochezia and it was resolved by the time patient was being discharged. Hemoglobin and hematocrit were stable throughout her hospital course. The decision was thus made to discharge her home with Rx Oxycodone sent to pharmacy. Follow up appointment with PCP in 2 week instructed. She also had follow up appointment with Oncologist in 3 days set up. All questions were answered prior to patient being physically discharged. Discharge diagnosis: Acute pancreatitis. Time Spent with Patient Time attestation: Total time spent providing and/or coordinating discharge services: Time spent: Less than 30 minutes EXAM Constitutional Vitals: Temp Pulse Resp BP Pulse Ox 37.2 C 72 16 124/71 97 07/16/20 08:00 07/16/20 08:00 07/16/20 08:00 07/16/20 08:00 07/16/20 08:00 General appearance: cooperative and no acute distress Head Head exam: Present atraumatic and normocephalic Eye Eye exam: Present EOMI and PERRL ENT ENT exam: Present mucous membranes moist, normal exam and normal external ear exam Neck Neck exam: Present normal inspection; Absent lymphadenopathy, tenderness and thyromegaly Respiratory Respiratory exam: Absent accessory muscle use, respiratory distress and wheezes Cardiovascular Cardiovascular exam: Present normal rate and rhythm; Absent JVD GI/Abdominal GI/Abdominal exam: Present normal bowel sounds and soft; Absent organomegaly and tenderness Extremities Exam Extremities exam: Present full ROM, normal capillary refill and normal inspection; Absent tenderness Neurological Exam Neurological exam: Present alert, CN II-XII intact and oriented X3; Absent motor sensory deficit Psychiatric Psychiatric exam: Present normal affect and normal mood; Absent anxious and depressed Skin Skin exam: Present dry and intact Discharge Data Data Completed and Pending Labs on day of discharge: Labs from last 24 hours 07/16/20 07/16/20 06:00 06:00 WBC 8.7 RBC 3.85 L Hgb 11.7 L Hct 34.8 L MCV 90.4 MCH 30.4 MCHC 33.6 RDW 14.0 Plt Count 197 MPV 12.6 H Neut % (Auto) 80.7 H Lymph % (Auto) 11.4 L [place] % (Auto) 6.8 Eos % (Auto) 0.9 Baso % (Auto) 0.2 Lymph # (Auto) 0.99 L [place] # (Auto) 0.59 Eos # (Auto) 0.08 Baso # (Auto) 0.02 Absolute Neutrophils 6.99 Sodium 142 Potassium 3.5 Chloride 111 H Carbon Dioxide 26 Anion Gap 5.0 L BUN 4 L Creatinine 0.5 L GFR Calculation 114 Glucose 80 Calcium 8.5 L Total Bilirubin 0.8 AST 41 H ALT 68 H Alkaline Phosphatase 66 Total Protein 5.9 Albumin 3.4 Globulin 2.5 Albumin/Globulin Ratio 1.4 Discharge Plan Patient/Caregiver Discharge Instructions Activity: increase activity as tolerated Diet: Regular Diet Activity Restrictions/Additional Instructions: 2 week PCP follow up Follow up with Hematology/Oncology on 07/19/20 Prescriptions: New oxycodone-acetaminophen 10-325 mg Tablet 1 tab PO Q4-6HP PRN (Reason: Per Pain Protocol) Qty: 10 RF: 0 Continued acetaminophen 1,000 mg PO Q8HP PRN (Reason: Pain) RF: 0 Adult Multivitamin Gummies 1 cap PO DAILY RF: 0 Follow Up Plan Follow up with: Tamie Kong [Primary Care Provider] - Patient Disposition: Home, Self-Care Rehab Potential: Good Overall status at discharge: patient is back to baseline Discharge Orders: Discharge Order (Routine); Ordered 07/16/20 Ordered By: Nathanael MEDLEY VTE Deep Vein Thrombosis/Pulmonary Embolism Present on Admission: No
--- NOTE | 2020-07-16 10:20 | General Surgery Progress Note ---
SUBJECTIVE Subjective Patient information: Note initiated : 07/16/20 at 10:17 am Service Date, if different from initiated Date: [] Patient: Jewell Bartlett 50 y/o F admitted on 07/14/20 for nausea, vomiting, diarrhea. Chief Complaint: [] Interval history: Hospital day #3 status post radiology biopsy of liver mass with postprocedure pancreatitis. Patient is now pain-free, tolerating a regular diet, and has returned to baseline. She has no further nausea or vomiting. 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 She will be started on chemotherapy to strength the tumor and then follow-up for surgery in the future. Constitutional Vitals: Vital Signs Temp Pulse Resp BP Pulse Ox 99 F 72 16 124/71 97 07/16/20 08:00 07/16/20 08:00 07/16/20 08:00 07/16/20 08:00 07/16/20 08:00 Period Temp Pulse Resp BP Sys/Baird Pulse Ox Last 24 Hr 97.4 F-99 F 64-87 16-20 102-131/64-80 95-100 Intake and Output 07/15/20 07/16/20 07/16/20 21:59 05:59 13:59 Intake Total 1660 Output Total 1535 1250 300 Balance 125 -1250 -300 Weight 122 lb 11.2 oz Intake & Output: Intake & Output 07/15/20 07/16/20 07/16/20 21:59 05:59 13:59 Intake Total 1660 Output Total 1535 1250 300 Balance 125 -1250 -300 Weight 122 lb 11.2 oz Intake: IV 700 Sodium Chloride 0.9% 1,000 ml @ 700 250 mls/hr IV .Q4H [facility] Rx#: [id number] Oral 960 Output: Void Amount 1535 1000 300 Stool 250 Other: Meal Dinner Percent of Meal Consumed 75% Feeding Ability Independent Urine Appearance Clear Clear Urine Color Bright Yellow Bright Yellow Urine Odor Normal Stool Size Small Moderate Stool Color Blood Tinged Brown Black Stool Consistency Liquid Loose General appearance: cooperative and no acute distress GI/Abdominal GI/Abdominal exam: Present normal bowel sounds and soft; Absent distended, guarding and tenderness A/P Narrative A/P Narrative: Presumptive GI stromal tumor. She has a oncology appointment scheduled Saturday. After being started on chemotherapy she will need to be followed with serial CT scans and once tumor size habits decreased she will need surgery. She can either follow-up with her surgeon in [place], or she can f ollow-up with me for surgery which ever she prefers. Pancreatitis. Resolved, unknown etiology, unlikely to be gallstone pancreatitis. GI bleed, likely related to #1 above, if increased amount of bleeding have recommended returning to hospital, however when she is started on therapy this should resolve. She is clear for discharge from a surgical standpoint. Would provide her with a nonnarcotic pain medication in addition to very few narcotic prescription for intermittent pain until she follows up with oncology. Thank you very much for this consultation please call with any further questio ns. Time Spent With Patient Time: Total time spent is greater than 50% in coordination of care (as documented) at patient's floor/unit and/or counseling patient:
[2020-07-16] MEDS: NICOTINE 21 MG PATCH TOPICAL SCH (10:35)
== END 2020-07-16 13:30 | disposition home or self-care (01) | DRG 439 ==
LOC: ED 21:12 → MEDSUR 07-14 03:10
PROVIDERS: ADMIT Internal Medicine; ATTEND Internal Medicine